=== PATIENT | female | born 1985 | race Caucasian/White ===

== ENCOUNTER 2017-08-07 16:46 | Emergency (ER) | payer OTHER ==
[2017-08-07 16:59] VITALS: BP 128/81; PULSE 100; TEMP 98.1; BMI 23.3
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
== END 2017-08-07 18:46 | disposition home or self-care (01) ==
LOC: JERFT 16:46
DX: M54.6 Pain in thoracic spine (principal); S13.4XXA Sprain of ligaments of cervical spine, initial encounter; V43.52XA Car driver injured in collision with other type car in traffic accident, initial encounter; Y93.89 Activity, other specified; Y92.410 Unspecified street and highway as the place of occurrence of the external cause; F17.210 Nicotine dependence, cigarettes, uncomplicated
CPT/HCPCS: 72050-TC; 99281-25

== ENCOUNTER 2019-09-21 13:35 | Emergency (ER) | payer SELFPAY ==
[2019-09-21 13:52] VITALS: BP 120/60; PULSE 60; TEMP 98; BMI 26.6
[2019-09-21] MEDS ORDERED: FAMOTIDINE 20 MG TABLET PO ONE (14:55)
[2019-09-21] MEDS ORDERED: DEXAMETHASONE LIQUID 0.5 MG/5 ML PO ONE (14:55)
[2019-09-21] MEDS ORDERED: FAMOTIDINE 20 MG TABLET ONE (14:59)
[2019-09-21] MEDS ORDERED: DEXAMETHASONE SOD PHOSPHATE 10 MG/1 ML VIAL ONE (14:59)
--- NOTE | 2019-09-21 15:06 | PDOC ---
History of Present Illness - General Chief Complaint: Allergic Reaction Stated Complaint: ALLERGIC REACTION/ DYE Time Seen by Provider: 09/21/19 14:46 History Source: Patient Exam Limitations: No Limitations - History of Present Illness Initial Comments: 09/21/19 15:02 33-year-old female denies past medical history presents complaining of scalp swelling and itching x3 days after dying her hair. Patient applied thigh for 25 minutes then wash to out, blow dry her hair and went to sleep. Next morning awoke to itching and rash to scalp. She has been taking 25 mg tablets every 4 hours for itching with some relief and applying hydrocortisone ointment to scalp. Presents to ED today stating her itching is worsening, last Benadryl dose was today at 7 AM. Denies shortness of breath, difficulty breathing, nausea, abdominal pain, headache, vomiting or any other complaint. ROS: GENERAL/CONSTITUTIONAL: Itching, no fever, chills, weakness, dizziness HEAD, EYES, EARS, NOSE AND THROAT: No changes in vision, No ear pain or discharge, No sore throat CARDIOVASCULAR: No chest pain RESPIRATORY: No shortness of breath or cough GASTROINTESTINAL: No pain, nausea, vomiting, diarrhea or constipation GENITOURINARY: No dysuria MUSCULOSKELETAL: No neck or back pain SKIN: Scalp rash NEUROLOGIC: No headache, vertigo, loss of consciousness, or loss of sensation PE: GENERAL: well-appearing, NAD, speaking full sentences HEAD: Minimal, scattered hives throughout scalp, NCAT EYES: Pupils equal, round and reactive to light, sclera anicteric, conjunctiva clear ENT: pharynx: no erythema, no exudate, uvula midline NECK: supple CHEST: nontender RESP: clear, no w/r/r CARDIO: rrr, no m/g/r ABD: +BS, soft, nontender, non distended BACK: no midline spinal ttp, no CVAT EXTREMITIES: Normal range of motion, no edema NEUROLOGICAL: Normal speech, normal gait SKIN: 3- 4 small hives noted to left side of neck, warm, Dry Is this a multiple visit Asthma Patient?: No Past History - Past Medical History Allergies/Adverse Reactions: Allergies Allergy/AdvReac Type Severity Reaction Status Date / Time No Known Allergies Allergy Verified 09/21/19 13:49 Home Medications: Ambulatory Orders predniSONE [Deltasone -] 40 mg PO DAILY 4 Days #4 tablet 09/21/19 Asthma: No Cancer: No Cardiac Disorders: No COPD: No Diabetes: No HTN: No Seizures: No Thyroid Disease: No - Psycho Social/Smoking Cessation Hx Smoking Status: No Smoking History: Unknown if ever smoked Have you smoked in the past 12 months: No Number of Cigarettes Smoked Daily: 10 Hx Alcohol Use: No Drug/Substance Use Hx: No Hx Substance Use Treatment: No *Physical Exam - Vital Signs Last Vital Signs Temp Pulse Resp BP Pulse Ox 98.0 F 60 16 120/60 100 09/21/19 13:49 09/21/19 13:49 09/21/19 13:49 09/21/19 13:49 09/21/19 13:49 ED Treatment Course - Medications Given in the ED: ED Medications Discontinued Medications Generic Name Dose Route Start Last Admin Trade Name Pino PRN Reason Stop Dose Admin Dexamethasone 10 mg 09/21/19 14:55 09/21/19 14:59 Decadron Liquid - PO 09/21/19 14:56 10 mg ONCE ONE Administration Diphenhydramine HCl 50 mg 09/21/19 14:54 09/21/19 14:59 Benadryl Injection - IM 09/21/19 14:55 50 mg ONCE ONE Administration Famotidine 20 mg 09/21/19 14:55 09/21/19 15:00 Pepcid - PO 09/21/19 14:56 20 mg ONCE ONE Administration Medical Decision Making - Medical Decision Making 09/21/19 15:05 33-year-old female without any past medical history presents complaining of rash and pruritus to scalp x3 days after dying her hair. Hives noted throughout scalp Speaking full sentences Lungs clear We will treat with IM Benadryl 50 mg P.o. Decadron P.o. Pepcid Will discharge on prednisone taper dose Return precautions discussed Discharge - Discharge Information Problems reviewed: Yes Clinical Impression/Diagnosis: Allergic reaction Qualifiers: Encounter type: initial encounter Qualified Code(s): T78.40XA - Allergy, unspecified, initial encounter Condition: Stable Disposition: HOME - Admission No - Additional Discharge Information Prescriptions: predniSONE [Deltasone -] 40 mg PO DAILY 4 Days #4 tablet - Follow up/Referral - Patient Discharge Instructions Additional Instructions: Take prednisone 40 mg daily starting tomorrow x4 days Take Benadryl 25 mg every 6 hours after 9 PM tonight as needed Return to ED if shortness of breath, nausea, vomiting, difficulty breathing or any worsening symptom - Post Discharge Activity Work/Back to School Note: Back to Work
== END 2019-09-21 15:35 | disposition home or self-care (01) ==
LOC: JERFT 13:35
PROC: 3E023GC Introduction of Other Therapeutic Substance into Muscle, Percutaneous Approach (ICD-10-PCS; principal; 2019-09-21)
DX: T78.40XA Allergy, unspecified, initial encounter (principal)
CPT/HCPCS: 99281-25

== ENCOUNTER 2021-04-15 15:22 | Emergency (ER) | payer OTHER ==
[2021-04-15 15:26] VITALS: BP 115/71; PULSE 99; TEMP 97.4; BMI 25.0
== END 2021-04-15 20:14 | disposition left against medical advice (07) ==
LOC: JER 15:22
DX: R10.9 Unspecified abdominal pain (principal)
CPT/HCPCS: 99281-25

== ENCOUNTER 2021-04-19 11:18 | Emergency (ER) | payer OTHER ==
[2021-04-19 11:27] VITALS: BP 126/81; PULSE 88; BMI 24.7
[2021-04-19 12:36] LABS: BASO % 1.3 % (0-2.0); EOS % 1.9 % (0-4.5); HEMOGLOBIN 11.5 GM/dL (10.7-15.3); LYMPH % 33.3 % (8-40); MCH 25.6 pg (25.7-33.7); MCHC 32.7 g/dl (32.0-36.0); MEAN CELL VOLUME 78.2 fl (80-96); MEAN PLT VOLUME 8.4 fl (7.5-11.1); MONO % 7.9 % (3.8-10.2); NEUT % 55.6 % (42.8-82.8); PLATELET COUNT 364 10^3/uL (134-434); RBC 4.47 M/mm3 (3.60-5.2); RDW 14.5 % (11.6-15.6); WHITE BLOOD COUNT 9.2 K/mm3 (4.0-10.0)
[2021-04-19 12:51] LABS: PH,URINE 7.5 (5.0-8.0); URINE APPEARANCE CLEAR; URINE BILIRUBIN NEGATIVE (NEGATIVE); URINE COLOR YELLOW; URINE GLUCOSE (UA) NEGATIVE (NEGATIVE); URINE KETONE NEGATIVE (NEGATIVE); URINE LEUK ESTERASE NEGATIVE (NEGATIVE); URINE NITRITE NEGATIVE (NEGATIVE); URINE PROTEIN NEGATIVE (NEGATIVE); URINE UROBILINOGEN 0.2 mg/dL (0.2-1.0)
[2021-04-19 12:56] LABS: CALCIUM 8.9 mg/dL (8.5-10.1)
[2021-04-19 12:57] LABS: ALBUMIN 3.7 g/dl (3.4-5.0)
[2021-04-19 13:00] LABS: CREATININE 0.6 mg/dL (0.55-1.3)
[2021-04-19 13:01] LABS: BILIRUBIN,TOTAL 0.3 mg/dL (0.2-1); TOT PROT 6.9 g/dl (6.4-8.2)
== END 2021-04-19 17:15 | disposition home or self-care (01) ==
LOC: JER 11:18
DX: O26.851 Spotting complicating pregnancy, first trimester (principal); Z3A.01 Less than 8 weeks gestation of pregnancy
CPT/HCPCS: 36415; 76817-TC; 80053; 81003; 84702; 85025; 86850; 86900; 86901; 87086; 87491; 87591; 99284-25

== ENCOUNTER 2021-05-17 09:40 | Emergency (ER) | payer OTHER ==
[2021-05-17 09:46] VITALS: BP 108/74; PULSE 93; TEMP 97.3; BMI 25.0
== END 2021-05-17 12:46 | disposition left against medical advice (07) ==
LOC: JER 09:40
DX: O20.0 Threatened abortion (principal)
CPT/HCPCS: 99281-25

== ENCOUNTER 2021-05-22 17:11 | Emergency (ER) | payer OTHER ==
[2021-05-22 17:16] VITALS: BP 107/50; PULSE 97; TEMP 98; BMI 25.0
[2021-05-22 18:12] LABS: EOS % 2.4 % (0-4.5); HEMATOCRIT 33.6 % (32.4-45.2); LYMPH % 40.3 % (8-40); MCH 25.9 pg (25.7-33.7); MCHC 32.7 g/dl (32.0-36.0); MEAN CELL VOLUME 79.1 fl (80-96); MEAN PLT VOLUME 8.4 fl (7.5-11.1); MONO % 8.3 % (3.8-10.2); PLATELET COUNT 323 10^3/uL (134-434); RBC 4.24 M/mm3 (3.60-5.2); RDW 14.4 % (11.6-15.6); WHITE BLOOD COUNT 8.8 K/mm3 (4.0-10.0)
== END 2021-05-22 21:42 | disposition home or self-care (01) ==
LOC: JER 17:11 → JERFT 17:11
DX: O03.9 Complete or unspecified spontaneous abortion without complication (principal)
CPT/HCPCS: 36415; 76817-TC; 84702; 85025; 99284-25

== ENCOUNTER 2021-06-10 20:27 | Emergency (ER) | payer OTHER ==
[2021-06-10 20:54] VITALS: BP 129/85; PULSE 88; BMI 25.7
[2021-06-10 20:55] VITALS: TEMP 98.2
== END 2021-06-10 22:16 | disposition home or self-care (01) ==
LOC: JER 20:27
DX: O03.9 Complete or unspecified spontaneous abortion without complication (principal); K08.9 Disorder of teeth and supporting structures, unspecified
CPT/HCPCS: 99281-25